=== PATIENT | female | born 1970 | race Caucasian/White ===

== ENCOUNTER 2016-06-26 02:41 | Emergency (ER) | payer BC | END 2016-06-26 04:00 | disposition home or self-care (01) | LOC: ER 02:41 | DX: S52.501A Unspecified fracture of the lower end of right radius, initial encounter for closed fracture (principal); W01.0XXA Fall on same level from slipping, tripping and stumbling without subsequent striking against object, initial encounter | CPT/HCPCS: 96372; J2550 ==